=== PATIENT | male | born 2000 | race Caucasian/White ===

== ENCOUNTER 2023-02-25 09:36 | Outpatient (CLI) | payer MEDICAID, SELFPAY ==
--- NOTE | 2023-02-25 09:45 | CRLHL7_ITS ---
For Patients: As a result of the Century Cures Act, medical imaging exams and procedure reports are released immediately into your electronic medical record. You may view this report before your referring provider. If you have questions, please contact your health care provider. INDICATION: abnormal LFTs. no pain. known ulcerative colitis COMPARISON: CT 12/10/2022 TECHNIQUE: Real time mcconnell scale imaging and color Doppler analysis was performed of the right upper quadrant. FINDINGS: The patient`s liver is of normal size and has mildly coarsened echogenicity. There is a normal appearance of the hepatic IVC and proximal abdominal aorta. There is no evidence of ascites. The gallbladder is contracted. The gallbladder wall measures 2 mm in thickness. The common bile duct is mildly irregular and measures 6 mm in diameter at the level of the izabela hepatis. The pancreas appears normal. There is no evidence of a stone or hydronephrosis within the right kidney. The right kidney measures 9.7 cm in length. IMPRESSION: Contracted gallbladder. Mild irregularity of the common bile duct which measures 3 millimeters. The patient has been NPO for 16 hours. Findings suggest chronic acalculous cholecystitis or biliary dyskinesia. Surgical consultation and/or HIDA scan recommended for further evaluation. Dictated by Felipe Landa MD @ 02/25/2023 11:19:12 AM (Electronically Signed)
== END 2023-02-25 09:37 | disposition home or self-care (01) ==
PROVIDERS: PCP Family Medicine; Visit Provider Physician Assistant
DX: R79.89 Other specified abnormal findings of blood chemistry (principal); K51.90 Ulcerative colitis, unspecified, without complications
CPT/HCPCS: 36415; 76705; 86480

== ENCOUNTER 2023-05-01 12:05 | Outpatient (CLI) | payer MEDICAID, SELFPAY ==
--- NOTE | 2023-05-01 12:00 | CRLHL7_ITS ---
For Patients: As a result of the Century Cures Act, medical imaging exams and procedure reports are released immediately into your electronic medical record. You may view this report before your referring provider. If you have questions, please contact your health care provider. Indication: Elevated liver function tests Technique: Nuclear medicine HIDA scan with gallbladder ejection fraction/Kinevac injection. Comparison: None Findings: DOSE: 5.09 millicuries technetium 99 M Mebrofenin and 1.18 micrograms of Kinevac. The uptake and excretion of radiotracer by the liver is normal with visualization of the gallbladder by 20 minutes and visualization of the small bowel by 15 minutes. The gallbladder ejection fraction could not be obtained as the nuclear operations specialist Concentrations of radio activity near the right hepatic vein as gallbladder uptake and realized that was not the gallbladder following intravenous administration of Kinevac. Impression: 1. Normal HIDA scan. 2. A gallbladder ejection fraction could not be obtained as detailed above. Dictated by Felipe Meeks MD @ 05/02/2023 1:56:01 PM (Electronically Signed)
== END 2023-05-01 12:06 | disposition home or self-care (01) ==
LOC: NM 12:05
PROVIDERS: PCP Family Medicine; Visit Provider Physician Assistant
DX: R79.89 Other specified abnormal findings of blood chemistry (principal)
CPT/HCPCS: 78227; A9537; J2805

== ENCOUNTER 2024-12-23 11:07 | Outpatient (CLI) | payer MEDICARE, MEDICAID, SELFPAY | END 2024-12-23 11:08 | disposition home or self-care (01) | LOC: FBOREF 11:07 | PROVIDERS: PCP Family Medicine; Visit Provider Family Medicine | DX: D50.9 Iron deficiency anemia, unspecified (principal) | CPT/HCPCS: 85018 ==

== ENCOUNTER 2025-01-19 10:30 | Outpatient (RCR) | payer MEDICARE, MEDICAID, SELFPAY ==
[2025-01-07 11:14] VITALS: BP 134/73; PULSE 101; TEMP 36.8; O2SAT 97
[2025-01-07] MEDS: IRON SUCROSE COMPLEX 200 MG in 0.9 % SODIUM CHLORIDE 100 ml 100 ML 440 MG IVPB (11:51)
[2025-01-07 12:14] VITALS: BP 130/79; PULSE 90; RESP 16; O2SAT 97
[2025-01-12 11:02] VITALS: BP 146/74; PULSE 91; RESP 16; TEMP 36.8; O2SAT 98
[2025-01-12] MEDS: IRON SUCROSE COMPLEX 200 MG in 0.9 % SODIUM CHLORIDE 100 ml 100 ML 440 MG IVPB (11:26)
[2025-01-12 11:45] VITALS: BP 116/69; PULSE 83; RESP 16; TEMP 36.7; O2SAT 97
[2025-01-12 12:15] VITALS: BP 118/75; PULSE 83; RESP 16; TEMP 36.7; O2SAT 100
[2025-01-19 10:25] VITALS: BP 136/88; PULSE 108; RESP 18; TEMP 36.6; O2SAT 97
[2025-01-19] MEDS: IRON SUCROSE COMPLEX 200 MG in 0.9 % SODIUM CHLORIDE 100 ml 100 ML 440 MG IVPB (10:47)
[2025-01-19 11:40] VITALS: BP 130/76; PULSE 92; RESP 18; TEMP 36.8; O2SAT 98
== END 2025-07-06 23:59 | disposition home or self-care (01) ==
LOC: CCIC 10:30
PROVIDERS: PCP Family Medicine; Referring Provider Family Medicine; Visit Provider Clinical Nurse Specialist
DX: D50.9 Iron deficiency anemia, unspecified (principal)
CPT/HCPCS: 96365; 96374; J1756

== ENCOUNTER 2025-04-01 09:07 | Outpatient (CLI) | payer MEDICARE, MEDICAID, SELFPAY ==
--- NOTE | 2025-04-01 09:15 | CRLHL7_ITS ---
For Patients: As a result of the Century Cures Act, medical imaging exams and procedure reports are released immediately into your electronic medical record. You may view this report before your referring provider. If you have questions, please contact your health care provider. INDICATION: Ulcerative colitis. COMPARISON: Abdominal ultrasound dated [address] scan of the abdomen and pelvis dated 10 Dec 2022. TECHNIQUE: Abdominal MRI with T1 in- and out of phase, T2, diffusion weighted, and progressively delayed post-contrast images. Intravenous gadolinium administered. Heavily T2 weighted 2D and 3D MRCP images. FINDINGS: No fatty infiltration of the liver. No focal abnormalities identified in the visualized portions of the liver, spleen, pancreas, adrenal glands, and kidneys. No hydronephrosis. Small diffuse pericolonic lymph nodes. Scattered areas of mild intrahepatic bile duct narrowing. Normal size of the common bile duct measuring 5 mm. No filling defects in the biliary system. Normal size of the main pancreatic duct. Impression : 1. 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 2. No dilation of the common bile duct. No choledocholithiasis. Normal size of the main pancreatic duct. Dictated by Сергей Diamond MD @ 04/03/2025 3:27:59 PM (Electronically Signed)
== END 2025-04-01 09:08 | disposition home or self-care (01) ==
LOC: MRI 09:08
PROVIDERS: PCP Family Medicine; Visit Provider Internal Medicine Gastroenterology
DX: K51.011 Ulcerative (chronic) pancolitis with rectal bleeding (principal)
CPT/HCPCS: 74183; A9575

== ENCOUNTER 2025-04-15 09:13 | Outpatient (CLI) | payer MEDICARE, MEDICAID, SELFPAY | END 2025-04-15 09:14 | disposition home or self-care (01) | PROVIDERS: PCP Family Medicine; Visit Provider Family Medicine | DX: K51.90 Ulcerative colitis, unspecified, without complications (principal); E46 Unspecified protein-calorie malnutrition; Z68.1 Body mass index [BMI] 19.9 or less, adult | CPT/HCPCS: 80061; 85018 ==